=== PATIENT | female | born 1985 | race Caucasian/White ===

== ENCOUNTER 2017-07-20 00:23 | Emergency (ER) | payer OTHER ==
[2017-07-20 00:31] VITALS: BP 115/67; PULSE 73; TEMP 98.4; BMI 27.3
--- NOTE | 2017-07-20 00:53 | PDOC ---
History of Present Illness - General Chief Complaint: Injury Stated Complaint: RT HAND LAC Time Seen by Provider: 07/20/17 00:28 History Source: Patient Exam Limitations: No Limitations - History of Present Illness Initial Comments: 07/20/17 00:53 This is a 22-year-old female who comes in complaining of a laceration to her right hand. Patient said she was carrying a glass of wine when she tripped and fell breaking the glass a wine lacerating her hand. Patient denies any other injuries. Patient's tetanus is up-to-date. PAST MEDICAL HISTORY: no significant history PAST SURGICAL HISTORY: no significant history FAMILY HISTORY: no pertinant history SOCIAL HISTORY: Pt lives with family and is employed. MEDICATIONS: reviewed ALLERGIES: As per nursing notes Review of Systems General: No fevers or chills, no weakness, no weight loss HEENT: No change in vision. No sore throat,. No ear pain CardioVascular: No chest pain or shortness of breath Respiratory:No cough, or wheezing. Gastrointestinal: no nausea, vomitting, diarrhea or constipation, No rectal bleeding Genitourinary: No dysuria, hematuria, or frequency Musculoskeletal: No joint or muscle pain or swelling Neurologic: No headache, vertigo, dizziness or loss of consciousness Psychiatric: nor depression Skin: No rashes or easy bruising Endocrine: no increased thirst or abnormal weight change Allergic: no skin or latex allergy All other systems reviewed and normal GENERAL: The patient is awake, alert, and fully oriented, in no acute distress. HEAD: Normal with no signs of trauma. EYES: Pupils equal, round and reactive to light, extraocular movements intact, sclera anicteric, conjunctiva clear. EXTREMITIES: Right hand there is a 2 cm laceration to the palm of the hand. Neurovascular distal is intact. There was a second very superficial laceration approximately 1/2 cm also on the palm of the hand with no active bleeding Laceration was explored there is no foreign body visible. NEUROLOGICAL: Normal speech, normal gait. PSYCH: Normal mood, normal affect. SKIN: Warm, Dry, normal turgor, no rashes or lesions noted. Procedure note laceration repair Laceration was anesthetized with 1% lidocaine no epinephrine approximately 1 mL laceration was cleaned with normal saline. Laceration was explored again post and asked to tolerate sitting and no foreign body was visible Laceration was closed with 3 sutures of 5-0 Ethilon Patient tolerated well Second laceration 1/2 cm on the palm of the hand was closed with Dermabond Past History - Past Medical History Allergies/Adverse Reactions: Allergies Allergy/AdvReac Type Severity Reaction Status Date / Time No Known Allergies Allergy Unverified 07/20/17 00:28 Home Medications: Ambulatory Orders Levothyroxine [Synthroid -] 75 mcg PO DAILY 07/20/17 *DC/Admit/Observation/Transfer Diagnosis at time of Disposition: Laceration of hand Qualifiers: Encounter type: initial encounter Foreign body presence: without foreign body Laterality: right Qualified Code(s): S61.411A - Laceration without foreign body of right hand, initial encounter; S61.411A - Laceration without foreign body of right hand, initial encounter - Discharge Dispostion Disposition: HOME Condition at time of disposition: Stable Admit: No - Patient Instructions Printed Discharge Instructions: DI for Laceration Repair With Dermabond, DI for Laceration Repair -- Simple Additional Instructions: Suture removal in 7-9 days. Keep the hand clean and dry for the next 48 hours. Do not get any petroleum based ointment on the skin glue as it will cause it to , early. Return to the emergency department immediately with ANY new, persistent or worsening symptoms. Continue any medications as previously prescribed by your physician. You should follow up with your primary doctor as soon as possible regarding today's emergency department visit. . Please make sure your doctor reviews the results of your emergency evaluation. Thank you for coming to the Emergency Department today for your care. It was a pleasure to see you today. Please note that your evaluation is INCOMPLETE until you follow-up with your doctor.
== END 2017-07-20 01:05 | disposition home or self-care (01) ==
LOC: EDBD → FER 00:23
PROC: 0HQFXZZ Repair Right Hand Skin, External Approach (ICD-10-PCS; principal; 2017-07-20)
DX: S61.411A Laceration without foreign body of right hand, initial encounter (principal); W25.XXXA Contact with sharp glass, initial encounter; Y93.89 Activity, other specified; Y92.9 Unspecified place or not applicable
CPT/HCPCS: 99282-25